=== PATIENT | female | born 1935 | race Caucasian/White ===

== ENCOUNTER → 2016-06-08 | Outpatient (CLI) | payer OTHER, MEDICARE ==
[~2016-06-08] MED LIST: PANT40TA PO; SUCR1TAB29 PO
[2016-06-08 13:09] LABS: ESTIMATED AVERAGE GLUCOSE 111 mg/dl; HA1C FLAG Normal (Normal)
--- NOTE | 2016-06-12 09:03 | CODING QUERY MEDICAL NECESSITY ---
SUPPORTING DIAGNOSIS NEEDED A supporting diagnosis is required for the test/procedure performed on this patient in order for us to be reimbursed by the patient's insurance. Please provide a supporting diagnosis for the following test/procedure listed below next to the test name along with your signature. *If there is no additional diagnosis for this patient that would support the following test/procedure please document that below next to the test/procedure. Test(s)/Procedure(s) that require a supporting diagnosis: * GLYCATED HEMOGLOBIN DIAGNOSIS: * DOS: 06/08/16 Provider Signature: Date: Thank you Pinky Silva Health Information Management Once completed, please kindly fax back to [phone] For questions please call [phone]
== END | disposition home or self-care (01) ==
LOC: C.LABBFT 08:03
PROVIDERS: ATTEND Internal Medicine
DX: R73.03 Prediabetes (principal); E55.9 Vitamin D deficiency, unspecified

== ENCOUNTER → 2016-06-10 | Outpatient (CLI) | payer OTHER, MEDICARE | END | disposition home or self-care (01) | LOC: C.LABSPEC 18:00 | PROVIDERS: ATTEND Internal Medicine | DX: R31.9 Hematuria, unspecified (principal) ==

== ENCOUNTER → 2016-10-08 | Outpatient (CLI) | payer OTHER, MEDICARE ==
[2016-10-08 12:51] LABS: CHOLESTEROL/HDL RATIO 3.5
== END | disposition home or self-care (01) ==
LOC: C.LABBFT 08:46
PROVIDERS: ATTEND Internal Medicine
DX: E78.00 Pure hypercholesterolemia, unspecified (principal); E55.9 Vitamin D deficiency, unspecified

== ENCOUNTER → 2017-02-11 | Outpatient (CLI) | payer OTHER, MEDICARE ==
[2017-02-11 12:49] LABS: CHOLESTEROL/HDL RATIO 3.3
== END | disposition home or self-care (01) ==
LOC: C.LABBFT 09:02
PROVIDERS: ATTEND Internal Medicine
DX: E78.00 Pure hypercholesterolemia, unspecified (principal); E55.9 Vitamin D deficiency, unspecified

== ENCOUNTER → 2017-09-13 | Outpatient (CLI) | payer OTHER, MEDICARE ==
[2017-09-13 13:19] LABS: BASO ABS # 0.05 K/uL (0-0.2); EOS % 2.7 %; EOS ABS # 0.13 K/uL (0-0.5); HEMATOCRIT 44.5 % (37-47); HEMOGLOBIN 15.4 g/dL (12.0-16.0); IG# 0.01 K/uL (0.00-0.02); LYMPH % 34.4 %; LYMPH ABS # 1.66 K/uL (1.2-3.4); MEAN CELL VOLUME 92.3 fL (80-100); MEAN CORPUSCULAR HGB CONC 34.6 g/dl (32-36); MEAN PLATELET VOLUME 9.2 fL (7.4-10.4); MONO % 7.7 %; MONO ABS # 0.37 K/uL (0.11-0.59); PLATELET COUNT 232 K/uL (130-400); WHITE BLOOD COUNT 4.82 K/uL (4.8-10.8)
[2017-09-13 14:25] LABS: ALBUMIN 3.4 gm/dl (3.4-5.0); ALKALINE PHOSPHATASE 92 U/L (45-117); ALT/SGPT 21 U/L (12-78); AST/SGOT 16 U/L (15-37); BLOOD UREA NITROGEN 15 mg/dl (7-18); CALCIUM 8.8 mg/dl (8.5-10.1); CARBON DIOXIDE 30 mmol/L (21-32); CHOLESTEROL 222 mg/dl (0-200); CREATININE 0.95 mg/dl (0.60-1.20); GLUCOSE 87 mg/dl (70-99); LDL CHOLESTEROL CALCULATED 122 mg/dl; POTASSIUM 4.3 mmol/L (3.5-5.1); SODIUM 140 mmol/L (136-145); TOTAL PROTEIN 6.7 gm/dl (6.4-8.2)
== END | disposition home or self-care (01) ==
LOC: C.LABBFT 07:31
PROVIDERS: ATTEND Internal Medicine
DX: K22.2 Esophageal obstruction (principal); E78.00 Pure hypercholesterolemia, unspecified; E55.9 Vitamin D deficiency, unspecified

== ENCOUNTER 2024-09-01 07:02 | Observation (INO) ==
--- NOTE | 2024-07-26 16:21 | PAT Medication Instructions ---
Medication Instructions Date of Service July 26, 2024 Home Medications cholecalciferol (vitamin D3) 50 mcg (2,000 unit) tablet 1,000 units PO QAM ascorbic acid (vitamin C) 500 mg tablet (Vitamin C) 500 mg PO QAM diclofenac sodium 75 mg tablet,delayed release 75 mg PO BID PRN Pain ASK your surgeon for instructions diclofenac sodium 75 mg tablet,delayed release 75 mg PO BID PRN Pain DO NOT take the morning of surgery cholecalciferol (vitamin D3) 50 mcg (2,000 unit) tablet 1,000 units PO QAM ascorbic acid (vitamin C) 500 mg tablet (Vitamin C) 500 mg PO QAM MORNING OF SURGERY: NOTHING TO EAT OR DRINK AFTER MIDNIGHT Other Notes If you have any questions please call us at [phone] or [phone] or [phone] or [phone]
--- NOTE | 2024-08-04 10:40 | Anesthesiology Consultation ---
Date of Service August 04, 2024 Assessment & Plan (1) Encounter for pre-operative examination: Chart Review Chart Review: Acceptable Risk for Surgery and Patient seen in Pre Admission Testing - Patient is NOT an ideal OPJ candidate (currently 23 hour obs) Per PAT appt on 08/04/24, no recent illness/disease exposures, illness related symptoms, or recent illness/disease positive tests. Will leave to surgeon's discretion if preop Covid testing needed Excision Right Breast Skin Lesion 10/13/21= Done under [facility] with LMA #3. Teaching & Discussion Pre-Anesthesia Teaching/Discussion Notes: Instructed NPO after midnight before surgery,except medications with 15 cc of water. Medication instructions provided according to the [facility] guidelines. History Surgery Operation Date: 09/01/24 12:00 Proposed Procedures p Right Anterior Total Hip Arthroplasty - Pilo Sahu DO Height/Weight Height: 5 ft Weight: 55.6 kg Allergies Allergy/AdvReac Type Severity Reaction Status Date / Time adhesive Allergy Severe BLISTERS Verified 07/26/24 14:51 bacitracin Allergy Severe Redness of Verified 07/26/24 14:51 [From Neosporin Skin ([id number])] neomycin Allergy Severe Redness of Verified 07/26/24 14:51 [From Neosporin Skin ([id number])] Penicillins Allergy Severe MOUTH Verified 07/26/24 14:51 BLISTERS polymyxin B Allergy Severe Redness of Verified 07/26/24 14:51 [From Neosporin Skin ([id number])] alendronate sodium AdvReac Mild GI SYMPTOMS Verified 07/26/24 14:51 atorvastatin AdvReac Mild GI SYMPTOMS Verified 07/26/24 14:51 Medications Home Medications Medication Instructions Recorded Confirmed Last Taken cholecalciferol (vitamin D3) 50 1,000 units PO QAM 06/05/19 07/26/24 10/12/21 08:30 mcg (2,000 unit) tablet ascorbic acid (vitamin C) 500 mg 500 mg PO QAM 07/26/24 07/26/24 Unknown tablet (Vitamin C) diclofenac sodium 75 mg 75 mg PO BID PRN Pain 07/26/24 07/26/24 Unknown tablet,delayed release Past Medical History Medical History GERD (gastroesophageal reflux disease) well controlled and stable History of asthma as a young child - no problems since. 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 - no treatment, monitors with [facility] ([place]) - Under observation Exercise / Class Metabolic Activity II 4-5 Yardwork/Stairs/Walk up hill (one flight of stairs - no chest pain or SOB ) Past Family History Family History Sister Breast cancer Mother Colorectal cancer Father Pancreatic cancer Other No family history of adverse response to anesthesia Denies family history of Ovarian cancer Prostate cancer Diabetes Myocardial infarction Lung cancer Past Surgical History Surgical History H/O right mastectomy (2022) History of colonoscopy History of esophageal dilatation x2 History of esophagogastroduodenoscopy (EGD) History of removal of Port-a-Cath History of surgical removal of lesion (2021) Right breast lesion removal ([facility] - Dr Fernandes) --> spindle cell carcinoma S/P lumpectomy, right breast (2000) S/P tonsillectomy [place] teeth extracted Past Anesthesia History No Hx of Anesthesia Complications and No Family Hx of Anesthesia Complications History of PONV No Hx of PONV and No Hx of Motion Sickness Social History Smoking Status: Never smoker Do You Dip or Chew Tobacco: No Hx Alcohol Use: No Hx Substance Use: No substance use type: does not use Review of Systems - Snoring unknown- sleeps alone Patient denies chest pain, shortness of breath, dyspnea on exertion, cough, wheezing, palpitations. No hx of seizures, stroke, ME. No hx of blood clots or blood transfusions Physical Exam Vital Signs VITALS BP 116/70 P 76 TEMP 97.7 SP02 94% RESP 16 Constitutional no acute distress ENMT Mouth: no TMJ clicking Thyromental Distance: > or= 3.5 Finger Breadths (3.5) Mallampati Class: III Permanent implant in molar area Neck + limited neck extension (mild) Respiratory normal respiratory effort; no respiratory distress Auscultation: lungs clear to auscultation bilaterally; no wheezes Cardiovascular Rate/Rhythm: regular rate and regular rhythm Heart Sounds: no murmur Vessels: no carotid bruit Musculoskeletal Spine: no pain with cervical ROM Extremities: extremities normal to inspection Psychiatric Orientation: alert Lab Results Anesthesia Preop Results Results Anesthesia Widget: WBC 4.72 K/ul (4.8-10.8) L 08/04/24 Hgb 14.3 g/dl (12.0-16.0) 08/04/24 Hct 40.7 % (37.0-47.0) 08/04/24 Plt 214 K/uL (130-400) 08/04/24 Na 141 mmol/L (136-145) 08/04/24 K 4.3 mmol/L (3.5-5.1) 08/04/24 Cl 107 mmol/L (98-107) 08/04/24 CO2 31 mmol/L (21-32) 08/04/24 BUN 24 mg/dl (6-23) H 08/04/24 Creat 0.79 mg/dl (0.6-1.2) 08/04/24 Glucose Level 97 mg/dl (70-99(Fasting)) 08/04/24 PT 10.3 Seconds (9.0-12.0) 08/04/24 PTT 25 Seconds (21-31) 08/04/24 INR 0.9 (0.9-1.1) 08/04/24 HA1c 5.5 % (4.5-5.6) 08/04/24 Blood Type A Positive 08/04/24 Antibody Screen NEGATIVE 08/04/24 Testing Electrocardiogram Date: 08/04/24 Findings: + NSR @ (73bpm) Low voltage QRS Cannot rule out anterior infarct, age undetermined Nonspecific T wave abnormality When compared to EKG from December 24, 2021- nonspecific T wave abnormality, improved in anterior leads per cardio Chest X-Ray Date: 08/04/24 FINDINGS: Heart size and pulmonary vasculature are normal. No effusion or consolidation. Stable mild scoliosis. Stable hyperexpanded lungs
--- NOTE | 2024-08-31 07:24 | History & Physical Report ---
Date of Service August 31, 2024 Assessment & Plan (1) Osteoarthritis of right hip: We will proceed with a right anterior total of arthroplasty. Postoperatively, she will be started on aspirin for DVT prophylaxis and kept overnight in the hospital for postop medical management. She plans to use energy physical [employer] erapy upon discharge. History of Present Illness Chief Complaint: Osteoarthritis of the right hip. Primary Care Provider: José Miguel Bolden MD Tran is a pleasant 89-year-old female who has been dealing with chronic increasing right hip and groin pain. X-rays and clinical examination have been diagnostic for advanced arthritis of the right hip. After failed conservative treatment, she has elected to proceed with a right anterior total of a rthroplasty.. Allergies Allergy/AdvReac Type Severity Reaction Status Date / Time adhesive Allergy Severe BLISTERS Verified 07/26/24 14:51 bacitracin Allergy Severe Redness of Verified 07/26/24 14:51 [From Neosporin Skin ([id number])] neomycin Allergy Severe Redness of Verified 07/26/24 14:51 [From Neosporin Skin (bil-kle-[id number])] Penicillins Allergy Severe MOUTH Verified 07/26/24 14:51 BLISTERS polymyxin B Allergy Severe Redness of Verified 07/26/24 14:51 [From Neosporin Skin ([id number]-[id number])] alendronate sodium AdvReac Mild GI SYMPTOMS Verified 07/26/24 14:51 atorvastatin AdvReac Mild GI SYMPTOMS Verified 07/26/24 14:51 Home Medications Medication Instructions Recorded Confirmed Type cholecalciferol (vitamin D3) 50 1,000 units PO QAM 06/05/19 07/26/24 History mcg (2,000 unit) tablet ascorbic acid (vitamin C) 500 mg 500 mg PO QAM 07/26/24 07/26/24 History tablet (Vitamin C) diclofenac sodium 75 mg 75 mg PO BID PRN Pain 07/26/24 07/26/24 History tablet,delayed release Past Med/Surg History Problem List Right hip pain Lumbar radicular pain Spindle cell carcinoma Breast lesion (10/14/21) Excision of right breast lesion [address] Fernandes Encounter for pre-operative examination Arthritis Skin lesion of breast Dermatitis Benign neoplasm of large intestine (Acute) Breast cancer (Acute) Prediabetes (Acute) Schatzki's ring (Acute) Vitamin D deficiency (Chronic) Plantar fasciitis (Chronic) Osteoporosis (Chronic) Osteoarthritis (Chronic) Migraine (Chronic) Back pain (Acute) Abdominal pain GERD (gastroesophageal reflux disease) (Chronic) Hypercholesteremia (Chronic) Medical History History of asthma as a young child - no problems since. 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 - no treatment, monitors with [facility] ([place]) - Under observation Hypercholesteremia GERD (gastroesophageal reflux disease) well controlled and stable Hx of gastric ulcer History of chemotherapy (2002) History of breast cancer 2002- right- s/p Lumpectomy + chemotherapy/radiation + 5 years of Armidex Surgical History History of esophageal dilatation x2 History of esophagogastroduodenoscopy (EGD) History of colonoscopy History of removal of Port-a-Cath 2000/2001 S/P lumpectomy, right breast (2000) History of surgical removal of lesion (2021) Right breast lesion removal ([facility] - Dr Fernandes) --> spindle cell carcinoma [place] teeth extracted S/P tonsillectomy H/O right mastectomy (2022) Family History Sister Breast cancer Mother Colorectal cancer Father Pancreatic cancer Other No family history of adverse response to anesthesia Denies family history of Ovarian cancer Prostate cancer Diabetes Myocardial infarction Lung cancer Social History Smoking Status: Never smoker Second Hand Exposure: Yes ( was a smoker previously ); Do You Dip or Chew Tobacco: No; Tobacco Cessation Education Requested by Patient: No Hx Alcohol Use: No Hx Substance Use: No Preferred Language: Pakistani Communication Ability: Effective Visual Impairment: No Limitations Hearing Ability: Normal Bakery Manager Required: No Beliefs That Will Affect Care: None marital status: / Current Living Situation: Family Current Living Situation Comment: son, Julio current occupational status: retired current occupation: worked in real estate Other Information That Helps Us Care for You: No Feels Safe at Home: Yes Safety Concerns: Feels Safe At This Time Childhood Exposure to Second-Hand Smoke: No Diet: regular Dental Care, Regularly: Yes Physical Activity Frequency: 3-4 Times per Week Seatbelt Use: always Sunscreen Use: No Assistive Devices: Glasses Review of Systems All systems reviewed & are unremarkable except as noted in HPI & below. Physical Exam On physical examination of the right hip, she has decreased range of motion. She has pain with forced internal and external rotation. All of her pain is located in the groin.. Constitutional WD/WN, vitals as above Eyes PERRL, conjunctivae normal, anicteric sclerae ENMT external ear and nose normal, oropharynx normal Neck trachea midline, no thyromegaly Respiratory normal respiratory effort Cardiovascular RRR, no murmur, no edema Gastrointestinal (Abdomen) normal bowel sounds, soft, nontender, no hepatosplenomegaly Psychiatric A+Ox3, euthymic affect Results & Data Results & Data Laboratory Results . Diagnostic Findings X-rays of the right hip show advanced osteoarthritis with joint space narrowing, osteophyte formation, and [id number] articulation. PG Care Time/CCT Total # of Minutes Spent Total Time Spent with Patient: Total time spent is greater than 50% in coordination of care (as documented) at patient's floor/unit and/or counseling patient: Coding Level of Care Code None Diagnoses Osteoarthritis of right hip M16.11
[~2024-09-01 07:02] MED LIST changes: +BUPIVACAINE 0.5 % 5 MG/1 ML PF 10ML VIAL ONE; -PANT40TA PO; -SUCR1TAB29 PO
[2024-09-01] MEDS ORDERED: PROPOFOL IV EMULSION 10 MG/ML 20 ML VIAL IV ONE (07:09)
[2024-09-01] MEDS ORDERED: LIDOCAINE 2% 2 ML VIAL/AMP(20MG/ML) INFIL ONE (07:09)
[2024-09-01] MEDS ORDERED: fentaNYL citrate PF 100 MCG/2 ML VIAL ONE (07:10)
[2024-09-01] MEDS: LR 500ML BOLUS, THEN 15ML/HR IV SCH (07:54)
[2024-09-01] MEDS: LR 60ML/HR IV SCH (07:54)
[2024-09-01] MEDS: GABAPENTIN 300 MG CAP PO SCH (07:55)
[2024-09-01] MEDS: dexAMETHasone**PF** 10 MG/ML VIAL IV SCH (07:55)
[2024-09-01] MEDS: FAMOTIDINE 20 MG TAB PO SCH (07:55)
[2024-09-01] MEDS: ACETAMINOPHEN 500 MG TAB PO SCH ×2 (07:55→14:31)
--- NOTE | 2024-09-01 08:00 | History & Physical Bridge Note ---
Date of Service September 01, 2024 History & Physical Bridge Note I have examined the patient, reviewed the History & Physical and in the interval since the performance of the History & Physical I have noted the following changes of clinical significance: no changes noted
[2024-09-01] MEDS ORDERED: ePHEDrine sulfate 50 MG/ML AMP IV PRN (08:17)
[2024-09-01] MEDS ORDERED: ATROPINE SULFATE 0.1 MG/ML 10ML SYR IV PRN (08:17)
[2024-09-01] MEDS ORDERED: ONDANSETRON INJ 2 MG/ML 2 ML VIAL IV PRN ×2 (08:17→11:27)
[2024-09-01] MEDS ORDERED: fentaNYL citrate PF 100 MCG/2 ML VIAL IV PRN (08:17)
[2024-09-01] MEDS: TRANEXAMIC ACID 1,000 MG **IV Pre-op IV SCH (08:42)
[2024-09-01] MEDS: ceFAZolin 2000MG 2,000 MG/15 ML SYR IV SCH (08:56)
[2024-09-01] MEDS ORDERED: KETAMINE HCL 10MG/ML SYR ONE (09:19)
[2024-09-01] MEDS: ORTHO JOINT ANESTHETIC ONE (09:32)
[2024-09-01] MEDS ORDERED: PHENYLEPHRINE 100MCG/ML 5ML SYR ONE (09:37)
[2024-09-01] MEDS: ROPIV 0.5% 246mg, Ketorolac 30mg, EPINEPHrine 0.5mg in NSS INFIL SCH (09:44)
[2024-09-01] MEDS: TRANEXAMIC ACID 1,000 MG **IV Intra-op IV SCH (09:54)
--- NOTE | 2024-09-01 09:55 | Operative Report ---
PG Post Operative Report Pre & Post Diagnosis Operation Date: 09/01/24 09:00 Pre-Op Diagnosis: Osteoarthritis of right hip Post-Op Diagnosis: Osteoarthritis of right hip I identified the patient and participated in the time-out.: Yes Procedure Operation Date: 09/01/24 09:00 Actual Procedures p Right Anterior Total Hip Arthroplasty(Right) - Pilo Sahu DO Surgeon Pilo Sahu DO Tank Shop Supervisor Phani Willson PA-C Estimated Blood Loss 200 Findings Consistent with Post-Op Diagnosis Specimens Right femoral head Description of Procedure Implants used I used a [employer]immer[employer]omet total hip arthroplasty system with a size 4 standard offset Z1 stem, a 48 mm G7 cup with a 25mm screw, an E1 polyethylene liner, a 32 mm ceramic head with a -3.5 neck. Tran arrived at the hospital for the above procedure. She was seen in the preoperative holding area and the operative extremity was identified and signed. She was given a spinal anesthetic, a preoperative antibiotic, and TXA. She was then taken back to the operating room and laid on the table in the supine position. She was given basic sedation. The operative leg was secured to a Puristst leg positioner. The hip was then prepped and draped in sterile fashion. A timeout was done and the patient and the operative extremity was properly identified. An anterior approach was used. Dissection was taken down through the fascia and the tensor muscle belly was retracted laterally and the rectus was retracted medially. The circumflex vessels were identified and ligated. The capsule was then incised and tagged for later repair. The femoral neck was then cut and the femoral head was removed. The acetabulum was exposed. Time was spent doing a complete circumferential labral release. Sequential reaming of the acetabulum up to a size 47 reamer was done. Final reamings were done under fluoroscopy to ensure appropriate version. A Biomet 48 mm G7 cup was then impacted into place. A single 25 mm screw was placed. The E1 polyethylene liner was then snapped into place. Surrounding soft tissues were then injected with 100 cc of an orthopedic pain control cocktail. The proximal femur was then exposed. Sequential broaching up to a size 4 broach was done. Off that broach a size 32 head with a -3.5 neck was trialed. The hip was reduced and fluoroscopic images showed anatomic alignment of the implants in acceptable length. The broach was removed. The final size 4 Z1 stem was then impacted into place. A ceramic 32 mm head with a -3.5 neck was then impacted onto the stem and the hip was reduced. Final fluoroscopic images showed anatomic alignment of the hip. The capsule was then closed with #1 Vicryl suture. A dilute betadyne lavage was then done for 3 minutes. The joint was then irrigated with normal saline solution. The fascia was closed with #1 PDS suture. Skin was closed with 2-0 Vicryl, sena, and a Silverlon dressing. She was then transferred to a hospital bed and taken to the post anesthesia care unit in stable condition. She tolerated the procedure well. Phani Willson PA-C, was present for the entire procedure. He was critical for patient positioning, prepping, draping, retraction exposure, wound closure and application of sterile dressing. I attest to the content of the Intraoperative Record and any orders documented therein. Any exceptions are noted below.
--- NOTE | 2024-09-01 10:45 | XRay Report ---
XR hip 1V RT w pelvis CLINICAL HISTORY: IN PACU - Post Surgical COMPARISON: 02/23/2024 FINDINGS: Right hip prosthesis shows no hardware complication. There is expected soft tissue gas. Sk in sena are present. IMPRESSION: Unremarkable postoperative exam. ACT 112: Negative or not required by law. Electronically signed by: Dustin Brown M.D. 09/01/2024 10:44 AM
--- NOTE | 2024-09-01 10:53 | Fluoroscopy Report ---
FL hip RT 1V CLINICAL HISTORY: RIGHT ANTERIOR MAGGIE COMPARISON STUDY: 02/23/2024 FLUOROSCOPY TIME: 9 seconds FLUOROSCOPY IMAGES: 2 EXPOSURE DOSE: 0.8 mGy FINDINGS: Fluoroscopy was provided for right hip prosthesis. IMPRESSION: Intraoperative fluoroscopy. ACT 112: Negative or not required by law. Electronically signed by: Dustin Brown M.D. 09/01/2024 10:52 AM
[2024-09-01] MEDS ORDERED: bisacodyL 10 MG SUPP PR PRN (11:27)
[2024-09-01] MEDS ORDERED: MAGNESIUM HYDROXIDE SUSP 30 ML UDC PO PRN (11:27)
[2024-09-01] MEDS ORDERED: NALOXONE HCL 0.4 MG/1 ML VIAL/CARP IV PRN (11:27)
[2024-09-01] MEDS ORDERED: HYDROmorphone INJ 0.5 MG/0.5 ML SYR IV PRN (11:27)
[2024-09-01] MEDS ORDERED: METOCLOPRAMIDE HCL INJ 5 MG/ML 2 ML VIAL IV PRN (11:27)
[2024-09-01] MEDS: ALLERGY Noted to ORDERED Medication SCH (11:52)
[2024-09-01] MEDS: Nursing to Pharmacy Communication SCH (11:52)
[2024-09-01] MEDS: ceFAZolin 2,000 MG/15 ML IV PUSH IV ONE (11:52)
[2024-09-01] MEDS: SODIUM CHLORIDE 0.9% 1,000 ML IV SCH (12:06)
[2024-09-01] MEDS: KETOROLAC TROMETHAMINE 15 MG/ML VIAL IV SCH (12:06)
[2024-09-01] MEDS: ceFAZolin 1000MG 1,000 MG/7.5 ML SYR IV SCH (17:38)
[2024-09-01] MEDS: DOCUSATE SODIUM 100 MG CAP PO SCH (21:31)
[2024-09-01] MEDS: ASPIRIN 81 MG ECTAB PO SCH (21:31)
[2024-09-01] MEDS: SENNA 8.6 MG TAB PO SCH (21:32)
[2024-09-02] MEDS: oxyCODONE HCL IR 5 MG TAB (IMMEDIATE RELEASE) PO PRN (04:57)
--- NOTE | 2024-09-02 06:55 | Orthopedic Progress Note ---
Date of Service September 02, 2024 Assessment & Plan (1) Status post right hip replacement: Overall she is doing very well. She is not having much pain in the right hip. She will be seen by physical therapy today for ambulation and range of motion exercises. The nursing staff can change her dressing after physical therapy. I changed her pain medications to tramadol. She can be discharged home later today. She will follow-up with orthopedics in 2 weeks. Adam Mayfield was seen and examined at bedside this morning. Overall she is doing very well. She is not having too much pain in the right hip. She was having some soreness last night and was treated with an oxycodone. She was having some effects from the oxycodone. Otherwise no complaints.. Review of Systems All systems reviewed & are unremarkable except as noted in HPI & below. Physical Exam On physical exam of the right hip, the dressing is clean and dry. Her leg is out full extension. She has active dorsiflexion and plantarflexion of her right ankle.. Results & Data Results & Data Laboratory Results . Diagnostic Findings Postoperative x-rays of the right hip show the prosthesis to be in anatomic alignment without any evidence of fracture, dislocation, or loosening.. PG Care Time/CCT Total # of Minutes Spent Total Time Spent with Patient: Total time spent is greater than 50% in coordination of care (as documented) at patient's floor/unit and/or counseling patient: Coding Level of Care Code 48404 Post Operative Follow-Up Diagnoses Status post right hip replacement Z96.641
--- NOTE | 2024-09-02 06:57 | Discharge Summary ---
Date of Service September 02, 2024 Admission HPI (Per Admitting) Tran is a pleasant 89-year-old female who has been dealing with chronic increasing right hip and groin pain. X-rays and clinical examination have been diagnostic for advanced arthritis of the right hip. After failed conservative treatment, she has elected to proceed with a right anterior total of arthroplasty.. Admission Exam (Per Admitting) On physical examination of the right hip, she has decreased range of motion. She has pain with forced internal and external rotation. All of her pain is located in the groin.. Principal Diagnosis Same as "Discharge Diagnosis" noted below under Discharge Instructions. Discharge Exam On physical exam of the right hip, the dressing is clean and dry. Her leg is out full extension. She has active dorsiflexion and plantarflexion of her right ankle.. Discharge Data Procedures Performed Operation Date: 09/01/24 09:00 Actual Procedures p Right Anterior Total Hip Arthroplasty(Right) - Pilo Sahu DO Ordered Studies 09/01/24 FL hip RT 1V Routine Hospital Course (1) Status post right hip replacement: On September 01, 2024 Tran arrived at [facility] and underwent a right hip replacement without complication. She had a spinal anesthetic. Postoperatively she was started on aspirin for DVT prophylaxis and transferred to the general orthopedic floors. Her hospital course was uneventful. On postop day #1, her vital signs were stable and her pain was well-controlled. She was able to participate well with physical therapy doing ambulation and range of motion exercises. She was then discharged to home. She will follow-up with orthopedics in 2 weeks. PG Care Time/CCT Total # of Minutes Spent Total Time Spent with Patient: Total time spent is greater than 50% in coordination of care (as documented) at patient's floor/unit and/or counseling patient: Discharge Plan Discharge Items Patient Disposition: Home - Self-Care Reason For Visit: Right Hip Arthritis Discharge Diagnosis: Right hip replacement Activity: Per Instructions section Non-emergency contact: Surgeon Call non-emergency contact if: your wound has increased redness and your wound has increased drainage Follow-up/Referrals: José Miguel Bolden MD [Primary Care Provider] - Diet: Regular Addtl Attending Provider Instructions: Activity and Therapy Recommendations: * If you are using [facility] then therapy will be provided at your home until they feel you have accomplished all of your goals. * If you are using [facility] then Physical Therapy will be provided until they feel you are ready to start Outpatient Physical Therapy. * If you are not using home therapy then Outpatient Physical Therapy should start about 3-5 days from your day of surgery. Therapy will last about 6-10 weeks * You were shown a series of exercises in the hospital. Do these exercises three times each day including the exercises you were shown in physical therapy. * Get up and walk several times each day.~ For the first four weeks, try not to stand or walk for more than one hour at a time. If you do stand or walk for more than one hour, you will not hurt anything, but your leg will likely swell.~~ * As you feel comfortable, you may change from the walker or crutches to a cane and~then to independent walking. Medications: * Narcotic You will likely be sent home from the hospital with a prescription for the narcotic pain medication that worked best throughout your stay. * Cefadroxil -take the antibiotic twice a day for 10 days to help prevent infection. * Aspirin Most patients will be required to take Aspirin 81mg twice a day for 6 weeks after surgery. This is obtained [id number] and a prescription is not necessary. * Other medications may be prescribed for specific circumstances. If you have any questions, please call the office at . * Resume previous home medications unless otherwise instructed TEDs/Elastic Stockings: The white elastic stockings help limit swelling and prevent blood clots from forming in your legs. The more you wear them, the more they work. Wear them for 2 weeks. Dressing Care: Leave the Silverlon dressing in place for 7 days. After 7 days you may remove the dressing. If the incision is not draining then you may leave the sena open to air. If there is a little bit of drainage or if the sena are getting stuck on your clothing then cover the incision with a dry dressing. The sena will be removed at your 2 week follow-up appointment. Showering: You may shower with the Silverlon dressing in place. Do not let the shower spray hit the dressing directly. Pat the Silverlon dressing dry. If the dressing becomes wet underneath, then simply remove the dressing. Keep the incision dry until you are 7 days out from the day of surgery. After 7 days you may remove the Silverlon dressing and shower with the sena exposed. Let soapy water run over the sena and pat them dry. Do not scrub or soak the incision. Diet: You may resume your previous diet. Things To Watch For: * Drainage from the incision site that occurs more than one week after your surgery. * Increased redness at the incision site. * Fever above 102 degrees Fahrenheit. * Unusual chest pain or shortness of breath. * Call [facility] at with any of the above problems Follow-Up Visit: Follow-up with Dr. Sahu's office 2-3 weeks after your day of surgery. We will remove your sena and answer any questions. If you have any additional questions or concerns, Dr Sahu is usually in the office at the same time and will be available An appointment was probably scheduled when you signed-up for surgery in the office. If you have any questions call Office Instructions: More detailed instructions as well as Frequently Asked Questions were provided in a folder by our office when you signed-up for surgery. Please review these instructions when you get home. If you have any further questions or concerns, please feel free to call the office at [phone] Pending Studies at Discharge: No Stand-Alone Forms: My [facility], Smoking Cessation Medications and DC Order Prescriptions: New cefadroxil 500 mg capsule 500 mg PO BID 10 Days Qty: 20 0RF tramadol 50 mg tablet 50 mg PO Q6H PRN (Reason: pain) Qty: 30 0RF Continued cholecalciferol (vitamin D3) 2,000 unit tablet 1,000 units PO QAM diclofenac sodium 75 mg tablet,delayed release (DR/EC) 75 mg PO BID PRN (Reason: Pain) ascorbic acid (vitamin C) [Vitamin C] 500 mg Tablet 500 mg PO QAM Changed aspirin 81 mg Tablet 81 mg PO BID 42 Days Qty: 0 0RF Discharge Orders: Discharge Order (Routine); Ordered 09/02/24 Ordered By: Pilo Sahu Admission Data Admit Date/Time: 09/01/24 10:20 Attending Provider: Pilo Sahu Admit Provider: Pilo Sahu Primary Care Provider: José Miguel Bolden
[2024-09-02] MEDS: dexAMETHasone 4 MG TAB PO SCH (07:46)
[2024-09-02] MEDS: MULTIVITAMIN TAB PO SCH (07:46)
[2024-09-02 07:59] VITALS: BP 117/69; PULSE 63; RESP 14; TEMP 97.3; O2SAT 97
[2024-09-02] MEDS: traMADol HCL 50 MG TABLET PO PRN (08:33)
--- NOTE | 2024-09-06 10:36 | Anesthesiology Progress Note ---
Date of Service September 01, 2024 Anesthesia Post Procedure Pain Intensity Right Hip: Pain Intensity: 2 Notes Mental Status: alert / awake / arousable Patient Amnestic to Procedure: Yes Nausea / Vomiting: adequately controlled Pain: adequately controlled Airway Patency, RR, SpO2: stable & adequate BP & HR: stable & adequate Hydration State: stable & adequate Neuraxial Anesthesia: was administered and sensory block is resolving Anesthetic Complications: no major complications apparent
== END 2024-09-02 11:31 | disposition home or self-care (01) ==
LOC: 3W 07:02 → ASU 07:02